=== PATIENT | female | born 1995 | race African-American/Black ===

== ENCOUNTER 2018-03-04 01:41 | Emergency (ER) | payer MEDICAID, OTHER ==
[~2018-03-04] VITALS: Ht 160 cm; Wt 57.0 kg
[~2018-03-04 01:41] MED LIST: PREN-88 PO
[2018-03-04] MEDS ORDERED: METOCLOPRAMIDE HCL 10MG TABLET PO ONE (03:45)
[2018-03-04 04:41] VITALS: BP 100/60
== END 2018-03-04 05:15 | disposition home or self-care (01) ==
LOC: ER 01:41
DX: O99.511 Diseases of the respiratory system complicating pregnancy, first trimester (principal); J06.9 Acute upper respiratory infection, unspecified; Z3A.01 Less than 8 weeks gestation of pregnancy
CPT/HCPCS: 81025; 87804; 99284; Z7610; J8597

== ENCOUNTER 2018-03-10 03:32 | Emergency (ER) | payer OTHER ==
[~2018-03-10] VITALS: Ht 157.5 cm; Wt 58.0 kg
[2018-03-10 03:36] VITALS: BP 102/58
[2018-03-10] MEDS ORDERED: ACETAMINOPHEN 325MG TABLET PO PRN (07:00)
[2018-03-10 07:15] LABS: CLARITY URINE CLEAR (CLEAR); COLOR URINE YELLOW (YELLOW); KETONES URINE TRACE (NEGATIVE); LEUKOCYTE ESTERASE URINE TRACE (NEGATIVE); NITRITE URINE NEGATIVE (NEGATIVE); OCCULT BLOOD URINE NEGATIVE (NEGATIVE); PROTEIN URINE NEGATIVE (NEGATIVE); SPECIFIC GRAVITY URINE 1.024 (1.005-1.030)
[2018-03-10 07:29] LABS: CHLORIDE 106 mEq/L (98-107)
[2018-03-10 07:35] LABS: BASOPHILS % 0.8 % (0.0-2.0); EOSINOPHILS % 1.5 % (0.0-5.0); HEMATOCRIT. 37.6 % (36.0-48.0); HEMOGLOBIN. 12.6 g/dL (12.0-16.0); LYMPHOCYTES % 38.7 % (20.0-50.0); MEAN CORPUSCULAR HEMOGLOBIN 28.4 pg (28.0-32.0); MEAN CORPUSCULAR VOLUME 85.2 fL (81.0-99.0); MEAN PLATELET VOLUME 7.6 fl (7.4-10.4); MONOCYTES % 12.3 % (2.0-8.0); NEUTROPHILS % 46.7 % (40.0-76.0); PLATELET 283 x1000/uL (130-400); RED BLOOD CELL COUNT 4.41 mill/uL (4.2-5.4); RED CELL DISTRIBUTION WIDTH 15.1 % (11.6-14.6)
[2018-03-10 07:45] LABS: B-HCG QUANTITATIVE 808 mIU/mL (<3)
== END 2018-03-10 09:06 | disposition home or self-care (01) ==
LOC: ER 03:40
DX: O20.9 Hemorrhage in early pregnancy, unspecified (principal); O26.891 Other specified pregnancy related conditions, first trimester; R10.9 Unspecified abdominal pain; R11.0 Nausea; R46.0 Very low level of personal hygiene; Z3A.01 Less than 8 weeks gestation of pregnancy
CPT/HCPCS: 36415; 76801; 80053; 81003; 81025; 84702; 85025; 86850; 86900; 99285

== ENCOUNTER 2018-05-20 11:32 | Emergency (ER) | payer OTHER, MEDICAID ==
[~2018-05-20] VITALS: Ht 160 cm; Wt 63.4 kg
[2018-05-20 11:35] VITALS: BP 106/63
== END 2018-05-20 11:52 | disposition left against medical advice (07) ==
LOC: ER 11:43
DX: O26.892 Other specified pregnancy related conditions, second trimester (principal); R51 Headache; Z3A.16 16 weeks gestation of pregnancy; Z53.21 Procedure and treatment not carried out due to patient leaving prior to being seen by health care provider

== ENCOUNTER 2019-06-28 12:24 | Emergency (ER) | payer OTHER, MEDICAID ==
[~2019-06-28] VITALS: Ht 160 cm; Wt 68.0 kg
[2019-06-28] MEDS ORDERED: ABILIFY (13:08)
[2019-06-28] MEDS ORDERED: DEPAKOTE (13:08)
[2019-06-28] MEDS ORDERED: ARIP15TA2 PO (13:09)
[2019-06-28] MEDS ORDERED: DIVA500T3 PO (13:09)
[2019-06-28 14:41] VITALS: BP 119/69
== END 2019-06-28 14:44 | disposition home or self-care (01) ==
LOC: ER 13:29
DX: F31.9 Bipolar disorder, unspecified (principal); F90.9 Attention-deficit hyperactivity disorder, unspecified type; Z79.899 Other long term (current) drug therapy
CPT/HCPCS: 99283

== ENCOUNTER 2023-08-30 15:39 | Emergency (ER) | payer MEDICAID ==
[~2023-08-30] VITALS: Ht 160 cm; Wt 78.0 kg
[~2023-08-30 15:39] MED LIST changes: +ABILIFY; +ARIP15TA2 PO; +DEPAKOTE; +DIVA500T3 PO
[2023-08-30 15:42] VITALS: BP 120/75; RESP 16; TEMP 98.7; O2SAT 100
[2023-08-30 15:48] VITALS: PULSE 110
[2023-08-30 17:24] LABS: BASOPHILS % 0.4 % (0.0-2.0); EOSINOPHILS % 0.2 % (0.0-5.0); HEMATOCRIT. 33.9 % (36.0-48.0); HEMOGLOBIN. 11.2 g/dL (12.0-16.0); LYMPHOCYTES % 22.5 % (20.0-50.0); MEAN CORPUSCULAR HGB CONC 33.1 g/dL (31.0-37.0); MEAN CORPUSCULAR VOLUME 84.6 fL (81.0-99.0); MEAN PLATELET VOLUME 7.6 fl (7.4-10.4); MONOCYTES % 13.7 % (2.0-8.0); NEUTROPHILS % 63.2 % (40.0-76.0); PLATELET 275 x1000/uL (130-400); RED BLOOD CELL COUNT 4.01 mill/uL (4.2-5.4); RED CELL DISTRIBUTION WIDTH 13.8 % (11.6-14.6); WHITE BLOOD COUNT 9.2 x1000/uL (4.5-11.0)
[2023-08-30 17:34] LABS: CHLORIDE 105 mEq/L (98-107); INDEX HEMOLYSI 1 (1-3); INDEX ICTERIC 1 (1-4); INDEX LIPEMIC 1 (1-3); POTASSIUM 3.3 mEq/L (3.5-5.1); SODIUM 136 mEq/L (136-145)
[2023-08-30 17:41] LABS: ALANINE AMINOTRANSFERASE 47 IU/L (13-61); ALBUMIN 3.1 g/dL (3.4-5.0); ASPARTATE AMINOTRANSFERASE 54 IU/L (15-37); BILIRUBIN TOTAL 0.4 mg/dL (0.1-1.0); CALCIUM 8.7 mg/dL (8.5-10.1); CARBON DIOXIDE 26 mEq/L (21-32); CREATININE 0.7 mg/dL (0.6-1.3); GLUCOSE 100 mg/dL (70-105); PROTEIN TOTAL 7.3 g/dL (6.0-8.3); UREA NITROGEN BLOOD 4 mg/dL (7-21)
[2023-08-30] MEDS ORDERED: CLIN-194 MT (18:40)
[2023-08-30] MEDS ORDERED: CEPH500C2 MT (19:08)
== END 2023-08-30 19:09 | disposition left against medical advice (07) ==
LOC: ER 15:39
DX: O26.892 Other specified pregnancy related conditions, second trimester (principal); S61.011D Laceration without foreign body of right thumb without damage to nail, subsequent encounter; Z3A.14 14 weeks gestation of pregnancy; X58.XXXD Exposure to other specified factors, subsequent encounter
CPT/HCPCS: 36415; 73200; 80053; 81025; 85025; 99284

== ENCOUNTER 2023-09-09 07:45 | Emergency (ER) | payer MEDICAID ==
[~2023-09-09] VITALS: Ht 167.6 cm; Wt 73.0 kg
[~2023-09-09 07:45] MED LIST changes: +CEPH500C2 MT; +CLIN-194 MT
[2023-09-09 07:52] VITALS: BP 123/79; PULSE 93; RESP 18; TEMP 98.2; O2SAT 100
== END 2023-09-09 08:55 | disposition left against medical advice (07) ==
LOC: ER 08:04
DX: Z53.21 Procedure and treatment not carried out due to patient leaving prior to being seen by health care provider (principal)